=== PATIENT | female | born 1985 | race African-American/Black ===

== ENCOUNTER 2017-03-05 09:17 | Emergency (ER) | payer SELFPAY ==
[2017-03-05] MEDS: IPRATROPIUM/ALBUTEROL SULFATE 3 ML AMPUL.NEB NEB ONE (09:35)
[2017-03-05] MEDS: ACETAMINOPHEN 325 MG TABLET ONE (09:35)
--- NOTE | 2017-03-05 09:39 | ED Physician Documentation ---
General Adult - HISTORIAN Historian: patient - HPI Stated Complaint: sob, fever Chief Complaint: General Adult Onset: days ago Timing: still present Severity: moderate Further Comments: yes (Pt is a 31 yo female with sob/wheezing. Pt has had a cough x 1 week, but has been wheezy and achy with fever since yesterday. Pt has asthma hx, but has not had an exacerbation for years and does not have any asthma meds. Pt had recent childbirth and is not breast feeding.) - ROS CONST: fever, chills, other (malaise) EYES/ENT: none CVS/RESP: shortness of breath, other (wheezing) GI/: none MS/SKIN/LYMPH: none - PAST HX Past History: asthma Other History: other (recent childbirth) Allergies/Adverse Reactions: Allergies Allergy/AdvReac Type Severity Reaction Status Date / Time No Known Allergies Allergy Verified 03/05/17 09:47 - SOCIAL HX Smoking History: non-smoker - FAMILY HX Family History: No - VITAL SIGNS Vital Signs: Vital Signs Temp Pulse Resp BP Pulse Ox 139/72 11/05/15 20:00 - REVIEWED ASSESSMENTS Nursing Assessment Reviewed: Yes Vitals Reviewed: Yes Progress - Progress Progress: Duoneb HFN Solumedrol 125 mg IM much improved D/c instructions: Rx Albuterol (90 mcg/spray) MDI. Take 2 puffs every 4 hrs as needed for wheezing (or use nebulizer instead). Rx Albuterol HFN (2.5 mg/3ml). Take 1 HFN treatment every 4 hrs as needed for wheezing (or use MDI instead) Rx Prednisone 50 mg. Take one tablet once daily for 4 days. Start on 03-06-17. Rx Z-ofe. Use as directed on package. ED Results Lab/Radiology - Orders Orders: ED Orders Category Date Time Status Acetaminophen [Tylenol] Med 03/05/17 09:31 Discontinued 650 mg .ROUTE .STK-MED ONE Ipratropium/Albuterol Sulfate [Duoneb] Med 03/05/17 09:31 Discontinued 3 ml NEB .STK-MED ONE General Adult Physical Exam - PHYSICAL EXAM GENERAL APPEARANCE: moderate distress EENT: pharynx normal NECK: normal inspection, supple RESPIRATORY: wheezes (moderate) CVS: reg rate & rhythm, heart sounds normal ABDOMEN: soft, no organomegaly, normal bowel sounds BACK: normal inspection, no CVA tenderness SKIN: warm/dry, normal color EXTREMITIES: non-tender, normal range of motion, no evidence of injury NEURO: oriented X3, motor nml, sensation nml Discharge Clincal Impression: fever Asthma exacerbation Qualifiers: Asthma severity: moderate Asthma persistence: unspecified Qualified Code(s): J45.901 - Unspecified asthma with (acute) exacerbation Referrals: Sara Gonzalez [Primary Care Provider] - Condition: Good Disposition: 01 HOME, SELF-CARE Decision to Admit: NO Decision Time: 10:33
[2017-03-05 09:45] VITALS: BP 100/52
[2017-03-05] MEDS ORDERED: methylPREDNISolone SOD SUCC 125 MG/2 ML VIAL IM ONE (09:55)
[2017-03-05] MEDS ORDERED: IPRATROPIUM/ALBUTEROL SULFATE 3 ML AMPUL.NEB NEB ONE (09:56)
[2017-03-05] MEDS ORDERED: ACETAMINOPHEN 325 MG TABLET PO ONE (10:07)
--- NOTE | 2017-03-05 10:14 | Diagnostic Imaging Report ---
DASH GAITAN [facility] [address] [facility] [address] [address] Report Submission Date: Mar 05, 2017 10:12:17 AM [employer] Patient Study Name: AWILDA ABARCA Date: Mar 05, 2017 10:03:04 AM [employer] MANAGER Modality Type: CR Gender: F Description: CHEST : 89 Institution: [facility] Physician: DASH GAITAN Examination: PA and lateral chest. History: Evaluate lung cain. Findings: PA lateral chest demonstrate a normal cardiac and mediastinal silhouette. No focal infiltrate. No blunting of the costophrenic margins. Lower lung field breast attenuation. Osseous structures are appropriate for age. Impression: No acute pulmonary process. Electronically signed on Mar 05, 2017 10:12:17 AM [employer]NA[employer] by: Wilder BARONE
== END 2017-03-05 11:13 | disposition home or self-care (01) ==
LOC: ED 09:17
DX: J45.901 Unspecified asthma with (acute) exacerbation (principal); R50.9 Fever, unspecified
CPT/HCPCS: 71020; 94640; 96372; 99283

== ENCOUNTER 2017-08-28 09:55 | Emergency (ER) | payer SELFPAY ==
[2017-08-28 10:27] VITALS: BP 126/74
--- NOTE | 2017-08-28 12:25 | ED Physician Documentation ---
Ear Complaints - HISTORIAN Historian: patient, child - HPI Stated Complaint: Bilateral ear pain for 4 days Chief Complaint: Earache Additional Information: bilateral ear pain dec hearing onset 3-4 days ago prog worse has otc ear drops from [facility] = [facility] Timing: worse Location of Pain: both ears Severity: moderate Associated Symptoms: dull pain, discharge, hearing loss. denies: fever, chills , sharp pain - ROS CONST: no problems CVS/RESP: none GI/: denies: nausea, vomiting MS/SKIN/LYMPH: none NEURO/PSYCH: none All Systems -: Yes - PAST HX Past History: other (asthma) Allergies/Adverse Reactions: Allergies Allergy/AdvReac Type Severity Reaction Status Date / Time No Known Allergies Allergy Verified 08/28/17 10:27 Home Medications: Ambulatory Orders Medication Instructions Recorded NK [NK] 08/28/17 - SOCIAL HX Smoking History: non-smoker Alcohol Use: none Drug Use: none - FAMILY HX Family History: No - VITAL SIGNS Vital Signs: Vital Signs Temp Pulse Resp BP Pulse Ox 97.3 F L 91 H 14 126/74 97 08/28/17 09:57 08/28/17 09:57 08/28/17 09:57 08/28/17 09:57 08/28/17 09:57 - REVIEWED ASSESSMENTS Nursing Assessment Reviewed: Yes Vitals Reviewed: Yes Ear Complaint Physical Exam - EXAM General Appearance: moderate distress, anxious Ear: auricle nml, pain w movement of auricl, right, left, swelling of canal, material in canal, cerumen, discharge. No: application chemist.canal nml, mastoid tenderness , mastoid swelling, blood, foreign body Nose: No: mucosal swelling, mucosal erythema Head/Neck: atraumatic Eye: eyes nml inspection Resp/CVS: chest non-tender, breath sounds nml, heart sounds nml Abdomen: non-tender. No: guarding, swelling Skin: nml color, no skin rash. No: pallor, cyanosis, skin rash, ecchymosis Neuro/Psych: oriented x3 Discharge Clincal Impression: bilateral otitis externa Referrals: Sara Gonzalez [Primary Care Provider] - 2 Days Comments: ears -uset h2o2 plus alcohol then irrigated bilateral w/ warm water- then peroxide and alcohol again then betadine w/cotton plugs. pt sent home continue tx --see ENT if not better Condition: Good Disposition: 01 HOME, SELF-CARE Decision to Admit: NO Decision Time: 12:30
== END 2017-08-28 12:34 | disposition home or self-care (01) ==
LOC: ED 09:55
DX: H60.93 Unspecified otitis externa, bilateral (principal)
CPT/HCPCS: 99282